=== PATIENT | female | born 1980 | race Caucasian/White ===

== ENCOUNTER → 2017-11-28 | Outpatient (CLI) | payer BC ==
--- NOTE | 2017-11-28 23:02 | MR ---
EXAMINATION TYPE: MR knee RT wo con DATE OF EXAM: 11/28/2017 COMPARISON: NONE HISTORY: Right knee pain per order. Pain for 3 years after football tripping injury per patient. TECHNIQUE: Multiplanar, multisequence images of the knee is performed without IV contrast. FINDINGS: MEDIAL MENISCUS: Anterior and posterior horns are intact without tear. LATERAL MENISCUS: Anterior and posterior horns are intact without tear. CRUCIATE LIGAMENTS: The posterior cruciate ligament is intact and unremarkable. There is nonvisualiza tion of normal-appearing anterior cruciate ligament consistent with full-thickness tear. COLLATERAL LIGAMENTS: The medial collateral ligament and lateral collateral ligament complex are inta ct and unremarkable. EXTENSOR MECHANISM: Visualized quadriceps and patellar tendons are intact. EFFUSION: No significant suprapatellar joint effusion. POPLITEAL CYST: No popliteal/triplett cyst. TRICOMPARTMENT SPACES: Lateral tilting of patella is present. There is mild tricompartmental joint sp farhan loss and spurring. CARTILAGE: There is no significant chondromalacia patella. Tricompartmental articular cartilage is fa irly well maintained. BONE MARROW SIGNAL: Slight heterogeneity is present. OTHER: No additional significant abnormality is appreciated. IMPRESSION: 1. Complete ACL tear. 2. Background mild tricompartment degenerative changes.
== END | disposition home or self-care (01) ==
LOC: RADMRIMAIN 19:08
PROVIDERS: ATTEND Family Medicine
DX: S83.511A Sprain of anterior cruciate ligament of right knee, initial encounter (principal); R93.7 Abnormal findings on diagnostic imaging of other parts of musculoskeletal system

== ENCOUNTER 2021-01-04 05:44 | Day surgery (SDC) | payer BC, OTHER ==
[2020-12-31 10:56] VITALS: BMI 28.3
--- NOTE | 2021-01-01 06:51 | P.HPOB ---
History of Present Illness H&P Date: 01/01/21 Chief Complaint: Menorrhagia This patient is a pleasant 40-year-old 2 para 2 female who presents for endometrial ablation secondary to long-standing menorrhagia. Patient had a transvaginal ultrasound which showed the endometrium to be thickened at 1.4 cm but otherwise normal. Endometrial biopsy was done which was normal. I discussed options for treatment and she wishes to proceed with endometrial ablation for treatment. Review of Systems Genitourinary: Reports menorrhagia Past Medical History Additional Past Medical History / Comment(s): HEAVY PAINFUL MENSES History of Any Multi-Drug Resistant Organisms: None Reported Past Surgical History: Bariatric Surgery, Cholecystectomy, Orthopedic Surgery, Tubal Ligation Additional Past Surgical History / Comment(s): EGD. ACL REPAIR RT KNEE Past Anesthesia/Blood Transfusion Reactions: No Reported Reaction Past Psychological History: No Psychological Hx Reported Smoking Status: Never smoker Past Alcohol Use History: None Reported Past Drug Use History: None Reported - Past Family History Mother Family Medical History: No Reported History Medications and Allergies Home Medications Medication Instructions Recorded Confirmed Type Venlafaxine HCl [Effexor XR] 225 mg PO HS 12/31/20 12/31/20 History buPROPion HCL [Wellbutrin XL] 300 mg PO HS 12/31/20 12/31/20 History Allergies Allergy/AdvReac Type Severity Reaction Status Date / Time Penicillins Allergy Rash/Hives Verified 12/31/20 10:50 sulfamethoxazole Allergy Rash/Hives Verified 12/31/20 10:50 [From Bactrim] trimethoprim [From Bactrim] Allergy Rash/Hives Verified 12/31/20 10:50 Exam Intake and Output 12/31/20 12/31/20 01/01/21 14:59 22:59 06:59 Other: Weight 72.575 kg - OBG Physical Exam Abdomen: bowel sounds normal, no diffuse tenderness, no bruit present, no guarding noted, no hepatomegaly, no splenomegaly, no mass Vulva: both: normal Vagina: normal moisture, no discharge Cervix: no lesion, no discharge Uterus: normal size, normal contour Results Transvaginal ultrasound as above. Endometrial biopsy was benign. Assessment and Plan Assessment: This is a pleasant 40-year-old 2 para 2 female with long-standing menorrhagia who is requesting NovaSure endometrial ablation for treatment. Plan is hysteroscopy, D&C, and NovaSure endometrial ablation. Patient does understand the surgery and risks including risks of infection, bleeding, possible uterine perforation, and/or thermal injury. All the patient's questions are answered and a written consent obtained. (1) Menorrhagia Status: Chronic Code(s): N92.0 - EXCESSIVE AND FREQUENT MENSTRUATION WITH REGULAR CYCLE SNOMED Code(s): 561984608
[~2021-01-04 05:44] MED LIST: Pre Op ABX Message 1 EACH MISC MISCELLANE ONE
[2021-01-04] MEDS ORDERED: ONDANSETRON 4 MG/2 ML VIAL IVP ONE (06:02)
[2021-01-04] MEDS ORDERED: MIDAZOLAM 2 MG/2 ML VIAL IV PRN (06:02)
[2021-01-04] MEDS ORDERED: LACTATED RINGERS 1,000 ML IV SCH (06:02)
[2021-01-04] MEDS ORDERED: METOCLOPRAMIDE 5 MG/ML 2 ML VIAL IVP PRN (06:02)
[2021-01-04] MEDS ORDERED: HYDROmorphone 0.5 MG/0.5 ML SYRINGE IVP PRN (06:02)
[2021-01-04] MEDS ORDERED: LIDOCAINE 1% (10MG/ML) FOR IV START INTRADERMA PRN (06:02)
[2021-01-04] MEDS ORDERED: SCOPOLAMINE 1.5MG/72HR PATCH TRANSDERM ONE (06:02)
[2021-01-04] MEDS ORDERED: DEXAMETHASONE SOD PHOSPHATE 4 MG/ML 1 ML VIAL IV ONE (06:02)
[2021-01-04] MEDS ORDERED: LIDOCAINE 1% INJ 10MG/ML (20 ML MDV) ONE (06:55)
[2021-01-04] MEDS ORDERED: MIDAZOLAM 2 MG/2 ML VIAL ONE (06:55)
[2021-01-04] MEDS ORDERED: PROPOFOL 10 MG/ML 20 ML VIAL IV ONE (06:55)
[2021-01-04] MEDS ORDERED: fentaNYL (PF) 50 MCG/ML 2 ML AMP ONE (06:55)
--- NOTE | 2021-01-04 07:32 | P.OP ---
Date of Procedure: 01/04/21 Preoperative Diagnosis: Menorrhagia Postoperative Diagnosis: Same Procedure(s) Performed: #1: Hysteroscopy. #2: Dilation and curettage. #3: NovaSure endometrial ablation Anesthesia: other (LMA) Surgeon: Negrito Amaya Estimated Blood Loss (ml): 10 IV fluids (ml): 600 Urine output (ml): 10 Pathology: other (Uterine curettings) Condition: stable Disposition: PACU Indications for Procedure: Please see dictated H&P for intimate details of this patient's admission. Brief summary this pleasant 40-year-old 2 para 2 female long-standing menorrhagia requesting NovaSure endometrial ablation. Patient understands the surgery and risks and risks of infection, bleeding, possible uterine perforation, and/or thermal injury. All the patient's questions were answered written consent is obtained. Operative Findings: This patient had a normal-appearing endometrial cavity Description of Procedure: This patient is taken to the operating room where she is laid in the supine position. She subsequently undergoes general anesthesia without incident. An adequate level of anesthesia placed in dorsal lithotomy position. She has a vaginal perineal prep and drape. Examination under anesthesia shows a mid position uterus of normal size. First drain her bladder for 10 mL of urine. A weighted speculum was then placed in the posterior vagina. Anterior lip of cervix is gravid and Allis clamp. Uterus is then sounded to 8.5 cm. With this done serial dilation is done of the endocervix to allow the hysteroscope easily uterine cavity. Hysteroscopy is performed with saline and the uterine cavity is measured a length of 6.0 cm and appears normal. With this done the hysteroscope was removed. Cervix is dilated more to allow a small curette easily uterine cavity a gentle but thorough 4 quadrant curettage then done. With this completed the NovaSure device is then opened. It is set at a length of 6.0 cm and opens up to a width of 3.8 cm. After passing the cavity integrity test is enabled at 125 W setting for 57 seconds. NovaSure device is then removed. Hysteroscopy is performed again and the uterine cavity appears to be completely ablated up to the endocervix. With this completed the procedure is ended. The counts are correct 3. There are no complications. Patient is awakened from anesthesia and taken recovery room satisfactory condition.
[2021-01-04 07:38] VITALS: TEMP 97
[2021-01-04 09:14] VITALS: RESP 20
[2021-01-04 09:16] VITALS: BP 115/81; PULSE 44
== END 2021-01-04 09:14 | disposition home or self-care (01) ==
LOC: OR 05:44
PROVIDERS: ATTEND Obstetrics & Gynecology
DX: N92.0 Excessive and frequent menstruation with regular cycle (principal); N94.6 Dysmenorrhea, unspecified; Z98.84 Bariatric surgery status; Z90.49 Acquired absence of other specified parts of digestive tract; Z98.51 Tubal ligation status; Z98.890 Other specified postprocedural states; Z79.899 Other long term (current) drug therapy; Z79.1 Long term (current) use of non-steroidal anti-inflammatories (NSAID); Z88.0 Allergy status to penicillin; Z88.2 Allergy status to sulfonamides; Z88.1 Allergy status to other antibiotic agents
CPT/HCPCS: 81025; 88305; 58563; J2250; J1100; J2405; J2001; J3010; J2704

== ENCOUNTER → 2021-01-12 | Outpatient (CLI) | payer BC, OTHER ==
[2021-01-12 13:09] VITALS: BP 109/68; PULSE 68; RESP 16; TEMP 98.2; BMI 27.6
--- NOTE | 2021-01-12 14:41 | FL ---
SINGLE CONTRAST BARIUM SWALLOW: CLINICAL HISTORY: 40-year-old female R13.10, dysphagia. Unable to keep food down. Coughing at night. History of lap band 12 years ago. 1.2 cc fill emptied today. TECHNIQUE: Single contrast exam performed with thin barium. Total fluoroscopy time: 2 minutes 5 seconds. Total images: 29 FINDINGS: The patient swallowed oral contrast without difficulty. There is immediate pooling of contrast in the lower esophagus with some mild debris noted suggesting retained ingested material. There is intermit tent trickle flow of contrast across the lap band and recurrent episodes of intraesophageal reflux. O n a 3 minute post procedure image, the esophagus remains filled to the lower third level. IMPRESSION: 1. No evidence for lap band prolapse. 2. The lap band is very tight with a moderate relative obstruction and only intermittent trickle flow across the lap band. There are recurrent episodes of intraesophageal reflux and some mottled debris suggesting retained ingested material in the lower esophagus. 3. 3 minutes following the procedure, an image shows that contrast remains pooled to the lower third esophagus.
--- NOTE | 2021-01-12 16:23 | P.BASOAP ---
Subjective Progress Note Date: 01/12/21 Principal diagnosis: Dysphagia 40-year-old female known to our service. Patient had lab and placed over 10 years ago. Patient has a [address]. She thinks she has a small amount of fluid in the band. Has had issues with nausea and vomiting and is having difficulty tolerating liquids even at this point. Symptoms increasing over the last 1-2 months. States she has lost 20 pounds in the last 1-2 months. Objective - Vital Signs Vital signs: Vital Signs Temp 98.2 F 01/12/21 13:07 Pulse 68 01/12/21 13:07 Resp 16 01/12/21 13:07 BP 109/68 01/12/21 13:07 Pulse Ox Intake & Output 01/11/21 01/12/21 01/12/21 18:59 06:59 18:59 Weight 70.76 kg - Exam Abdomen: Soft, nontender, nondistended Assessment/Plan (1) Dysphagia Narrative/Plan: Options reviewed with patient. Will empty band at this time. We'll send for esophagram following that. The patient's lap band port was palpated. The site was aseptically prepped. The Banuelos needle was advanced into the port. A total of 1.3 ml of fluid was removed. Band is now empty. Pressure was held and a sterile dressing was applied. Patient came back after esophagram following emptying of band. Band slightly tight with some hesitancy although no evidence of definite obstruction, no prolapse, no erosions seen. Patient will follow-up 1-2 months. Plan: Date: 01/12/21 Initial Weight: 70.76 kg Initial BMI: 27.6 Current Weight: 70.76 kg Current BMI: 27.6 Type of Surgery: Total Volume in Band: Previous Volume: Volume Removed: Volume Added: Band Size:
== END ==
LOC: BARWHC3 12:55
PROVIDERS: ATTEND Surgery
DX: Z46.51 Encounter for fitting and adjustment of gastric lap band (principal); R13.10 Dysphagia, unspecified; R11.2 Nausea with vomiting, unspecified; Z88.1 Allergy status to other antibiotic agents; Z88.0 Allergy status to penicillin; Z88.2 Allergy status to sulfonamides
CPT/HCPCS: 74220; 99212

== ENCOUNTER → 2021-02-02 | Outpatient (CLI) | payer BC, OTHER ==
[2021-02-02 13:50] VITALS: BP 100/63; PULSE 71; RESP 18; TEMP 98.1; BMI 29.5
--- NOTE | 2021-02-02 14:00 | P.BASOAP ---
Subjective Progress Note Date: 02/02/21 Principal diagnosis: Morbid obesity Patient returns for recheck. Last seen on 01/12. 1.3 mL was removed from her band because of dysphagia symptoms. The majority of her dysphagia has improved. Still has mild episodes occasionally and feels some degree of restriction. She was considering having fluid added back to her band. She has also been considering band removal. She has gained 9 pounds since her last visit. Upper GI last visit did show that the band was still fairly tight even after emptying. Objective - Vital Signs Vital signs: Vital Signs Temp 98.1 F 02/02/21 13:47 Pulse 71 02/02/21 13:47 Resp 18 02/02/21 13:47 BP 100/63 02/02/21 13:47 Pulse Ox Intake & Output 02/01/21 02/02/21 02/02/21 18:59 06:59 18:59 Weight 75.75 kg - Exam Abdomen: Soft, nontender, nondistended Assessment/Plan (1) Dysphagia Narrative/Plan: Patient improved after emptying the band last visit. Options discussed. Observation, band removal, or band conversion to sleeve gastrectomy or bypass discussed as viable options at this point. Patient would like to consider this further. Plan repeat clinical exam 3 months. She will call me with any worsening dysphagia. Plan: Date: 02/02/21 Initial Weight: 70.76 kg Initial BMI: 27.6 Current Weight: 75.75 kg Current BMI: 29.5 Type of Surgery: Total Volume in Band: 0 Previous Volume: Volume Removed: Volume Added: Band Size:
== END ==
LOC: BARWHC3 13:21
PROVIDERS: ATTEND Surgery
DX: E66.01 Morbid (severe) obesity due to excess calories (principal); Z68.29 Body mass index [BMI] 29.0-29.9, adult; R13.19 Other dysphagia; Z88.1 Allergy status to other antibiotic agents; Z88.0 Allergy status to penicillin; Z88.2 Allergy status to sulfonamides
CPT/HCPCS: 99211

== ENCOUNTER → 2021-05-04 | Outpatient (CLI) | payer BC, OTHER ==
[2021-05-04 14:05] VITALS: BP 114/71; PULSE 78; RESP 18; TEMP 98.8; BMI 32.5
--- NOTE | 2021-05-04 14:29 | P.BASOAP ---
Subjective Progress Note Date: 05/04/21 Principal diagnosis: Morbid obesity Patient returns for reevaluation. Last seen 02/02. Her band is empty. Despite her band being empty an upper GI performed after the band was emptied showed some tightness at the band site. No evidence of prolapse or erosion were seen. Since last visit she has had dysphagia to solid foods. She had trouble with salad over the weekend. No pain. No heartburn. Despite that patient has gained 16 pounds since last visit. Objective - Vital Signs Vital signs: Vital Signs Temp 98.8 F 05/04/21 13:51 Pulse 78 05/04/21 13:51 Resp 18 05/04/21 13:51 BP 114/71 05/04/21 13:51 Pulse Ox Intake & Output 05/03/21 05/04/21 05/04/21 18:59 06:59 18:59 Weight 83.416 kg - Exam Abdomen: Soft, nontender, nondistended Assessment/Plan (1) Dysphagia Narrative/Plan: Options discussed with patient. Her band is empty. Despite that patient having difficulty with dysphasia. Medically necessary to remove the band at this point. Future consideration for conversion to alternate bariatric surgeries an option. We'll schedule for lap band removal. Plan: Date: 05/04/21 Initial Weight: 70.76 kg Initial BMI: 27.6 Current Weight: 83.416 kg Current BMI: 32.5 Type of Surgery: Total Volume in Band: 0 Previous Volume: Volume Removed: Volume Added: Band Size:
== END ==
LOC: BARWHC3 13:23
PROVIDERS: ATTEND Surgery
DX: E66.01 Morbid (severe) obesity due to excess calories (principal); R13.10 Dysphagia, unspecified; Z98.84 Bariatric surgery status; Z68.32 Body mass index [BMI] 32.0-32.9, adult; Z88.1 Allergy status to other antibiotic agents; Z88.0 Allergy status to penicillin; Z88.2 Allergy status to sulfonamides
CPT/HCPCS: 99211

== ENCOUNTER → 2021-05-21 | Outpatient (CLI) | payer BC, OTHER ==
[2021-05-21 11:49] LABS: Basophils % (A) 1 %; Eosinophils # (A) 0.1 k/uL (0-0.7); Eosinophils % (A) 3 %; HCT 37.9 % (34.0-46.0); Hypochromasia Slight; Lymphocytes # (A) 1.8 k/uL (1.0-4.8); Lymphocytes % (A) 31 %; MCH 25.9 pg (25.0-35.0); MCHC 31.6 g/dL (31.0-37.0); MCV 82.1 fL (80.0-100.0); Mean Platelet Volume 7.2; Monocytes # (A) 0.3 k/uL (0-1.0); Monocytes % (A) 5 %; Neutrophils # (A) 3.4 k/uL (1.3-7.7); Neutrophils % (A) 59 %; Platelet Count 233 k/uL (150-450); RBC 4.61 m/uL (3.80-5.40); RDW 14.6 % (11.5-15.5); WBC 5.7 k/uL (3.8-10.6)
[2021-05-21 12:33] LABS: Albumin 4.1 g/dL (3.5-5.0); Calcium 9.2 mg/dL (8.4-10.2); Potassium 4.5 mmol/L (3.5-5.1); Total Bilirubin 0.5 mg/dL (0.2-1.3); Total Protein 7.1 g/dL (6.3-8.2)
== END | disposition home or self-care (01) ==
LOC: LABPAT 09:33
PROVIDERS: ATTEND Surgery
DX: Z01.812 Encounter for preprocedural laboratory examination (principal)
CPT/HCPCS: 36415; 80053; 85025; 93005

== ENCOUNTER 2021-05-24 07:48 | Day surgery (SDC) | payer BC, OTHER ==
[2021-05-21 09:05] VITALS: BMI 32.1
--- NOTE | 2021-05-24 07:47 | P.GSHP ---
History of Present Illness H&P Date: 05/24/21 Chief Complaint: Lap band intolerance 40-year-old female known to our service. Patient has a lap band in place. Her band was causing issues with dysphagia vomiting and reflux. Her band was emptied. Despite that the patient's band still is somewhat tight proven by esophagram. We discussed options and have decided to proceed with lap band removal. Past Medical History Past Medical History: No Reported History Additional Past Medical History / Comment(s): HEAVY PAINFUL MENSES History of Any Multi-Drug Resistant Organisms: None Reported Past Surgical History: Bariatric Surgery, Cholecystectomy, Orthopedic Surgery, Tubal Ligation, Uterine Ablation Additional Past Surgical History / Comment(s): EGD, ACL REPAIR RIGHT KNEE. Past Anesthesia/Blood Transfusion Reactions: No Reported Reaction Past Psychological History: Anxiety, Depression Smoking Status: Never smoker Past Alcohol Use History: Occasional Past Drug Use History: None Reported - Past Family History Mother Family Medical History: No Reported History Medications and Allergies Home Medications Medication Instructions Recorded Confirmed Type buPROPion HCL [Wellbutrin XL] 150 mg PO HS 12/31/20 05/21/21 History ALPRAZolam [Xanax] 0.25 mg PO TID PRN 01/04/21 05/21/21 History Allergies Allergy/AdvReac Type Severity Reaction Status Date / Time amoxicillin Allergy Rash/Hives Verified 05/21/21 08:55 cephalexin [From Keflex] Allergy Rash/Hives Verified 05/21/21 08:55 ciprofloxacin [From Cipro] Allergy Rash/Hives Verified 05/21/21 08:55 Penicillins Allergy Rash/Hives Verified 05/21/21 08:55 sulfamethoxazole Allergy Rash/Hives Verified 05/21/21 08:55 [From Bactrim] trimethoprim [From Bactrim] Allergy Rash/Hives Verified 05/21/21 08:55 Surgical - Exam Physical exam: General: Well-developed, well-nourished HEENT: Normocephalic, sclerae nonicteric Abdomen: Nontender, nondistended Extremities: No edema Neuro: Alert and oriented Assessment and Plan (1) Dysphagia Narrative/Plan: 40-year-old female with lap band intolerance, dysphagia, vomiting, reflux. We'll proceed with laparoscopic lap band removal, possible open. The risks of bleeding, infection, stenosis, stricture, leak, abscess, fistula formation, peritonitis, reflux, vomiting, conversion to an open procedure were discussed. The patient understands and wishes to proceed. Status: Acute Code(s): R13.10 - DYSPHAGIA, UNSPECIFIED SNOMED Code(s): 26665699
[~2021-05-24 07:48] MED LIST changes: +CLINDAMYCIN 900 MG in DEXTROSE 5% IN WATER 50 ML IVPB PRN; +GENTAMICIN 320 MG in SODIUM CHLORIDE 0.9% 100 ML IVPB PRN; -Pre Op ABX Message 1 EACH MISC MISCELLANE ONE
[2021-05-24] MEDS ORDERED: LIDOCAINE 1% (10MG/ML) FOR IV START INTRADERMA PRN (08:09)
[2021-05-24] MEDS ORDERED: MIDAZOLAM 2 MG/2 ML VIAL IV PRN (08:09)
[2021-05-24] MEDS ORDERED: LACTATED RINGERS 1,000 ML IV SCH (08:09)
[2021-05-24] MEDS ORDERED: HYDROmorphone 0.5 MG/0.5 ML SYRINGE IVP PRN (08:09)
[2021-05-24] MEDS ORDERED: ONDANSETRON 4 MG/2 ML VIAL IVP ONE (08:09)
[2021-05-24] MEDS ORDERED: DEXAMETHASONE SOD PHOSPHATE 4 MG/ML 1 ML VIAL IV ONE (08:09)
[2021-05-24] MEDS ORDERED: HEPARIN SODIUM,PORCINE/PF 5,000 UNIT/0.5 ML SYRINGE SQ ONE (08:38)
[2021-05-24] MEDS ORDERED: MIDAZOLAM 2 MG/2 ML VIAL ONE (09:34)
[2021-05-24] MEDS ORDERED: PROPOFOL 10 MG/ML 20 ML VIAL IV ONE (09:34)
[2021-05-24] MEDS ORDERED: SUCCINYLCHOLINE CHLORIDE 100 MG/5 ML SYR IV ONE (09:34)
[2021-05-24] MEDS ORDERED: PHENYLEPHRINE-0.9% NACL SYG 1,000 MCG/10 ML SYRINGE ONE (09:34)
[2021-05-24] MEDS ORDERED: .fentaNYL (PF) 50 MCG/ML 2 ML AMP ONE (09:34)
[2021-05-24] MEDS ORDERED: HEPARIN SODIUM,PORCINE 5,000 UNIT/ML 1 ML VIAL ONE (09:34)
[2021-05-24] MEDS ORDERED: HYDROmorphone (PF) 1 MG/ML ONE (09:34)
[2021-05-24] MEDS ORDERED: NEOSTIGMINE 1 MG/ML 10 ML VIAL ONE (09:34)
[2021-05-24] MEDS ORDERED: LIDOCAINE 1% INJ 10MG/ML (20 ML MDV) ONE (09:34)
[2021-05-24] MEDS ORDERED: GLYCOPYRROLATE 0.2 MG/ML 2 ML VIAL ONE (09:34)
[2021-05-24] MEDS ORDERED: ROCURONIUM 10 MG/ML (5 ML VIAL) IV ONE (09:34)
[2021-05-24] MEDS ORDERED: BUPIVACAIN-EPI 0.25%-1:200,000 30 ML VIAL SQ ONE ×3 (10:10)
[2021-05-24] MEDS ORDERED: LACTATED RINGERS 1,000 ML IV ONE (10:39)
[2021-05-24 11:04] VITALS: TEMP 96.9
[2021-05-24] MEDS ORDERED: NALOXONE 0.4 MG/ML 1 ML VIAL IV PRN (11:16)
[2021-05-24] MEDS ORDERED: HYDROcodone/APAP 5-325MG 1 EACH TAB PO PRN (11:16)
--- NOTE | 2021-05-24 11:21 | P.OP ---
Date of Procedure: 05/24/21 Procedure(s) Performed: PREOPERATIVE DIAGNOSIS: Band intolerance/dysphagia POSTOPERATIVE DIAGNOSIS: Same PROCEDURE: Laparoscopic lap band removal SURGEON: Kalpesh EBL: Minimal ANESTHESIA: General COMPLICATIONS: None OPERATIVE PROCEDURE: The patient was brought and placed on the operating room table in the supine position. The patient was placed under general anesthesia at that time. The patient was then placed in lithotomy. The abdomen was prepped and draped in the usual sterile fashion. The previous port incision was localized and then incised using a scalpel. The port was easily excised using electrocautery. Entrance into the perineal cavity occurred using a 5 mm optical trocar through the old trocar entrance site. Upon insertion of the trocar it appeared that we were in an area of fatty adhesions. There was no bowel seen in the vicinity. We were able to insufflate the entire abdomen through that area however. I used a 5 mm right upper quadrant incision site and advanced the optical trocar into the abdomen without difficulty there. As I inspected the initial 5 mm trocar entrance site I could see that the trocar itself was past the peritoneum by 2 cm. There were no adhesions there. I could see a very small defect in the omentum immediately deep to this area. There was a small amount of air in that area. There was no bowel noted in the vicinity. No signs of bleeding. A 15 mm trocar was placed at the initial 5 mm port site incision. A right subxiphoid 5 mm trocar was placed. This was then removed and the medium Aislinn hook was used to elevate the left lobe of the liver anteriorly. An additional 5 mm trocar was placed under direct visualization in the left lateral upper quadrant. The patient's band was inspected. It actually appeared somewhat loose. There was minimal adhesions. Adhesions present around the buckle of the band were lysed using electrocautery. The band was then cut using the laparoscopic piotr. The band was then removed easily in 2 portions through the 15 mm trocar site. The stomach itself was inspected and revealed no evidence of erosion or prolapse. The trochars were removed. The fascia at the 15 mm site was closed using a Jonathan-Stefan 0 Vicryl stitch. The subcutaneous tissues at the port site was closed using a 3-0 Vicryl suture. The skin at all 4 incision sites were closed using 4-0 Monocryl sutures. Skin glue was then applied. DISPOSITION: Stable to recovery room
[2021-05-24 13:09] VITALS: BP 129/78; PULSE 51; RESP 20
== END 2021-05-24 13:16 | disposition home or self-care (01) ==
LOC: OR 07:48
PROVIDERS: ATTEND Surgery
DX: K95.09 Other complications of gastric band procedure (principal); R13.10 Dysphagia, unspecified; N94.6 Dysmenorrhea, unspecified; Z90.49 Acquired absence of other specified parts of digestive tract; Z98.51 Tubal ligation status; Z98.890 Other specified postprocedural states; F41.9 Anxiety disorder, unspecified; F32.A Depression, unspecified; Z79.899 Other long term (current) drug therapy; Z88.1 Allergy status to other antibiotic agents; Z88.0 Allergy status to penicillin; Z88.2 Allergy status to sulfonamides
CPT/HCPCS: 81025; 43774; J2250; J1644; J1100; J2710; J2405; J2001; J3010; J1580; J1170 ×2; J2370; J0330; J2704

== ENCOUNTER → 2021-06-01 | Outpatient (CLI) | payer BC, OTHER ==
[2021-06-01 14:11] VITALS: BP 106/67; PULSE 94; RESP 16; TEMP 99.1; BMI 32.2
--- NOTE | 2021-06-01 14:40 | P.BASOAP ---
Subjective Progress Note Date: 06/01/21 Principal diagnosis: Morbid obesity Patient returns after lap band removal. Doing well today. No pain. No incisional drainage. Tolerating diet. Objective - Vital Signs Vital signs: Vital Signs Temp 99.1 F 06/01/21 14:01 Pulse 94 06/01/21 14:01 Resp 16 06/01/21 14:01 BP 106/67 06/01/21 14:01 Pulse Ox Intake & Output 05/31/21 06/01/21 06/01/21 18:59 06:59 18:59 Weight 82.554 kg - Exam Abdomen: Soft, nontender, nondistended, incisions clean and dry Assessment/Plan (1) Morbid obesity Narrative/Plan: Patient doing well at this time. Continue light lifting. May return to work. Follow-up as needed. Plan: Date: 06/01/21 Initial Weight: 70.76 kg Initial BMI: 27.6 Current Weight: 82.554 kg Current BMI: 32.2 Type of Surgery: Total Volume in Band: 0 Previous Volume: Volume Removed: Volume Added: Band Size:
== END ==
LOC: BARWHC3 13:23
PROVIDERS: ATTEND Surgery
DX: E66.01 Morbid (severe) obesity due to excess calories (principal); Z68.32 Body mass index [BMI] 32.0-32.9, adult; Z88.1 Allergy status to other antibiotic agents; Z88.0 Allergy status to penicillin; Z88.2 Allergy status to sulfonamides
CPT/HCPCS: 99211